=== PATIENT | female | born 1945 | race Caucasian/White ===

== ENCOUNTER 2018-01-09 08:41 | Inpatient (IN) | payer MEDICARE ==
--- NOTE | 2018-01-09 09:12 | EDM.PDOC ---
ED HPI GENERAL MEDICAL PROBLEM - General Chief Complaint: Neuro Symptoms/Deficits Stated Complaint: UNRESPONSIVE Time Seen by Provider: 01/09/18 08:44 Source of Information: Reports: Patient, EMS, Family History Limitations: Reports: Altered Mental Status - History of Present Illness INITIAL COMMENTS - FREE TEXT/NARRATIVE: 72 y.o.w.f with a h/o dementia came to the ed by EMS. The ems was called to the scene pt would be unresponsive. As the EMS personal attempted to start an I V on her, pt said "you do not tough me". As the patient arrived here in the ed she was in tears. Her son arrived, stating, pt had and MRO 6 months ago, was seen by Psych, the eam results were inconclusive, f/u with Neurology was recommended. Pt did not f/u with neuro as of yet. Pt is occ hallucinating. She is not able to give a HPT. denied any physical issues. No N/V/D or any other acute medical issues. BP 146/82 pulse 82 O2 sat 98% Temp 36.7 Onset Date: 10/18/17 Onset Time: 10:00 Duration: Week(s):, Intermittent Location: Reports: Generalized Severity: Moderate Improves with: Reports: Medication Associated Symptoms: Reports: Confusion denies when asked Pain Score (Numeric/FACES): 0 ASLEEP Pain Score (Numeric/FACES): 0 - Related Data Allergies Allergy/AdvReac Type Severity Reaction Status Date / Time No Known Allergies Allergy Verified 01/09/18 08:55 Home Meds: Home Meds Losartan [Cozaar] 100 mg PO DAILY 01/09/18 [History] amLODIPine [Norvasc] 5 mg PO DAILY 01/09/18 [History] ED ROS GENERAL - Review of Systems Review Of Systems: See Below ED EXAM, NEURO - Physical Exam Exam: See Below General Appearance: Alert, WD/WN, Moderate Distress Eye Exam: Bilateral Eye: Normal Inspection Ears: Normal External Exam, Normal Canal Nose: Normal Inspection, Normal Mucosa Throat/Mouth: Normal Inspection, Normal Lips, Normal Gums, Normal Voice, No Airway Compromise Head Exam: Atraumatic, Normocephalic Neck: Normal Inspection, Supple, Non-Tender, Full Range of Motion Respiratory/Chest: No Respiratory Distress, Lungs Clear, Normal Breath Sounds, No Accessory Muscle Use, Chest Non-Tender Cardiovascular: Normal Peripheral Pulses, Regular Rate, Rhythm, No Edema, No Gallop GI/Abdominal: Normal Bowel Sounds, Soft, Non-Tender, No Organomegaly, No Distention, No Abnormal Bruit, No Mass, Pelvis Stable (Female) Exam: Deferred Rectal (Female) Exam: Deferred Neurological: Alert, Normal Mood/Affect, Normal Dorsiflexion, CN II-XII Intact, Normal Plantar Flexion, Normal Gait Back Exam: Normal Inspection, Full Range of Motion Extremities: Normal Inspection, Normal Range of Motion, Non-Tender, No Pedal Edema, Normal Capillary Refill Psychiatric: Depressed Mood, Tearful Skin Exam: Warm, Dry, Intact, Normal Color, No Rash Course - Vital Signs Text/Narrative:: 72 y.o.w.f with a h/o dementia came to the ed by EMS. The ems was called to the scene pt would be unresponsive. As the EMS personal attempted to start an I V on her, pt said "you do not tough me". As the patient arrived here in the ed she was in tears. Her son arrived, stating, pt had and MRO 6 months ago, was seen by Psych, the eam results were inconclusive, f/u with Neurology was recommended. Pt did not f/u with neuro as of yet. Pt is occ hallucinating. She is not able to give a HPT. denied any physical issues. No N/V/D or any other acute medical issues. BP 146/82 pulse 82 O2 sat 98% Temp 36.7 PE: 72 y.o w f with demetia vs Alzheimer's dx w/u in progress Labs: CBC nl Na 138 K 3.1 GFR>60 BUN 24 Cr 0.8 Impression: Dementia vs Alzheimers disease, hypokalemia, anxiety Tx: [place], NS Reexam: Pt was calm here in the ed after Benadryl was given 10.04 am Consultation: Dr. Alexandra, Neurologist, [facility]: Zyprexa and seroquel, admit to stabilize 11.24 am Consultation: Dr. Oretga, Hospitalist: Accepted pt for admission Plan: Admit to gar Last Recorded V/S: Last Vital Signs Temp 37.3 C 01/11/18 16:00 Pulse 81 01/11/18 16:00 Resp 20 01/11/18 16:00 BP 124/73 01/11/18 16:00 Pulse Ox 99 01/11/18 16:00 - Orders/Labs/Meds Orders: Medication Orders Amlodipine Besylate (Norvasc) 5 mg PO DAILY [facility] Last Admin: 01/11/18 08:44 Dose: 5 mg Admin: 01/10/18 09:31 Dose: 5 mg Donepezil HCl (Aricept) 5 mg PO BEDTIME [facility] Last Admin: 01/10/18 20:16 Dose: 5 mg Admin: 01/09/18 21:08 Dose: 5 mg Losartan Potassium (Cozaar) 100 mg PO DAILY [facility] Last Admin: 01/11/18 08:44 Dose: 100 mg Admin: 01/10/18 09:31 Dose: 100 mg Quetiapine Fumarate (Seroquel) 25 mg PO BEDTIME [facility] Last Admin: 01/10/18 20:16 Dose: 25 mg Admin: 01/09/18 21:08 Dose: 25 mg Tuberculin PPD (Aplisol) 5 unit IDERM ONETIME ONE Stop: 01/12/18 12:01 Labs: Laboratory Tests 01/09/18 01/09/18 01/09/18 Range/Units 09:10 09:30 09:30 WBC 5.9 (4.5-12.0) X10-3/uL RBC 4.27 (3.23-5.20) x10(6)uL Hgb 13.8 (11.5-15.5) g/dL Hct 40.3 (30.0-51.3) % MCV 94.3 (80-96) fL MCH 32.2 (27.7-33.6) pg MCHC 34.2 (32.2-35.4) g/dL RDW 12.6 (11.5-15.5) % Plt Count 199 (125-369) X10(3)uL MPV 8.7 (7.4-10.4) fL Neut % (Auto) 70.3 (46-82) % Lymph % (Auto) 17.8 (13-37) % [place] % (Auto) 7.1 (4-12) % Eos % (Auto) 3 (1.0-5.0) % Baso % (Auto) 2 (0-2) % Neut # (Auto) 4.1 (1.6-8.3) # Lymph # (Auto) 1.1 (0.6-5.0) # [place] # (Auto) 0.4 (0.0-1.3) # Eos # (Auto) 0.2 (0.0-0.8) # Baso # (Auto) 0.1 (0.0-0.2) # Sodium 145 (135-145) mmol/L Potassium 3.1 L (3.5-5.3) mmol/L Chloride 106 (100-110) mmol/L Carbon Dioxide 30 (21-32) mmol/L BUN 24 H (7-18) mg/dL Creatinine 0.8 (0.55-1.02) mg/dL Est Cr Clr Drug Dosing 56.36 mL/min Estimated GFR (MDRD) > 60 (>60) BUN/Creatinine Ratio 30.0 H (9-20) Glucose 98 (80-116) mg/dL Calcium 9.0 (8.6-10.2) mg/dL TSH, Ultra Sensitive (0.36-3.74) IU/mL Urine Opiates Screen Negative (NEGATIVE) Ur Oxycodone Screen Negative (NEGATIVE) Ur Propoxyphene Screen Negative (NEGATIVE) Ur Barbituates Screen Negative (NEGATIVE) Ur Tricyclics Screen Negative (NEGATIVE) Ur Phencyclidine Scrn Negative (NEGATIVE) Ur Amphetamine Screen Negative (NEGATIVE) Urine MDMA Screen Negative (NEGATIVE) U Benzodiazepines Scrn Negative (NEGATIVE) U Cocaine Metab Screen Negative (NEGATIVE) U Marijuana (THC) Screen Negative (NEGATIVE) Ethyl Alcohol (<0.03) % 01/09/18 Range/Units 09:30 WBC (4.5-12.0) X10-3/uL RBC (3.23-5.20) x10(6)uL Hgb (11.5-15.5) g/dL Hct (30.0-51.3) % MCV (80-96) fL MCH (27.7-33.6) pg MCHC (32.2-35.4) g/dL RDW (11.5-15.5) % Plt Count (125-369) X10(3)uL MPV (7.4-10.4) fL Neut % (Auto) (46-82) % Lymph % (Auto) (13-37) % [place] % (Auto) (4-12) % Eos % (Auto) (1.0-5.0) % Baso % (Auto) (0-2) % Neut # (Auto) (1.6-8.3) # Lymph # (Auto) (0.6-5.0) # [place] # (Auto) (0.0-1.3) # Eos # (Auto) (0.0-0.8) # Baso # (Auto) (0.0-0.2) # Sodium (135-145) mmol/L Potassium (3.5-5.3) mmol/L Chloride (100-110) mmol/L Carbon Dioxide (21-32) mmol/L BUN (7-18) mg/dL Creatinine (0.55-1.02) mg/dL Est Cr Clr Drug Dosing mL/min Estimated GFR (MDRD) (>60) BUN/Creatinine Ratio (9-20) Glucose (80-116) mg/dL Calcium (8.6-10.2) mg/dL TSH, Ultra Sensitive 1.86 (0.36-3.74) IU/mL Urine Opiates Screen (NEGATIVE) Ur Oxycodone Screen (NEGATIVE) Ur Propoxyphene Screen (NEGATIVE) Ur Barbituates Screen (NEGATIVE) Ur Tricyclics Screen (NEGATIVE) Ur Phencyclidine Scrn (NEGATIVE) Ur Amphetamine Screen (NEGATIVE) Urine MDMA Screen (NEGATIVE) U Benzodiazepines Scrn (NEGATIVE) U Cocaine Metab Screen (NEGATIVE) U Marijuana (THC) Screen (NEGATIVE) Ethyl Alcohol < 0.03 (<0.03) % Meds: Medications Generic Name Dose Route Start Last Admin Trade Name Freq PRN Reason Stop Dose Admin Amlodipine Besylate 5 mg 01/10/18 09:00 01/11/18 08:44 Norvasc PO 5 mg DAILY [facility] Administration Donepezil HCl 5 mg 01/09/18 21:00 01/10/18 20:16 Aricept PO 5 mg BEDTIME [facility] Administration Losartan Potassium 100 mg 01/10/18 09:00 01/11/18 08:44 Cozaar PO 100 mg DAILY [facility] Administration Quetiapine Fumarate 25 mg 01/09/18 21:00 01/10/18 20:16 Seroquel PO 25 mg BEDTIME [facility] Administration Tuberculin PPD 5 unit 06/01/18 12:00 Aplisol IDERM 06/01/18 12:01 ONETIME ONE Discontinued Medications Generic Name Dose Route Start Last Admin Trade Name Alekseyq PRN Reason Stop Dose Admin Diphenhydramine HCl 50 mg 01/09/18 09:36 01/09/18 09:56 Benadryl IM 01/09/18 09:37 50 mg ONETIME ONE Administration Olanzapine 5 mg 01/09/18 10:20 01/09/18 11:21 Zyprexa IM 01/09/18 10:21 5 mg ONETIME ONE Administration Potassium Chloride 40 meq 01/09/18 11:27 01/09/18 11:40 Klor-Con M20 PO 01/09/18 11:28 40 meq ONETIME ONE Administration Departure - Departure Time of Disposition: 16:00 Disposition: Admitted As Inpatient 65 Condition: Fair Clinical Impression: Dementia Qualifiers: Dementia type: Alzheimer's disease Alzheimer's disease onset: late-onset Dementia behavioral disturbance: with behavioral disturbance Qualified Code(s): G30.1 - Alzheimer's disease with late onset - Discharge Information
[2018-01-09] MEDS ORDERED: diphenhydrAMINE 50 MG/ML SDV IM ONE (09:36)
[2018-01-09] MEDS ORDERED: OLANZapine 10 MG Vial IM ONE (10:20)
[2018-01-09] MEDS ORDERED: Potassium Chloride 20 MEQ Tab.ER PO ONE (11:27)
--- NOTE | 2018-01-09 17:36 | PCM.HP ---
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 The son and the ER staff report that she has been forgetful over the last 6 months of sore and has had both visual and auditory hallucinations, to the point that she was uncontrollable today. She is known to have dementia after comprehensive neuropsychiatric done testing on 11/29/2017 by David Valadez PHD. Lori herself states that she's had forgetfulness, difficulty walking, and being lost several times while driving. She also finds is helpful getting things that she knows she had done several times like doing laundry. There is no report of fever chest pain or chills. Her symptoms have been gradual in onset and worsened last few weeks. The son is concerned about her safety, but she is no longer able to live independently as she does. Her driving privileges were taken a few weeks ago. Other history the past includes hypertension and knee also arthritis which have been relatively stable. May retired from [employer] teaching about a year ago denies when asked Pain Score (Numeric/FACES): 0 - Related Data Allergies/Adverse Reactions: Allergies Allergy/AdvReac Type Severity Reaction Status Date / Time No Known Allergies Allergy Verified 01/09/18 08:55 Home Medications: Home Meds Losartan [Cozaar] 100 mg PO DAILY 01/09/18 [History] amLODIPine [Norvasc] 5 mg PO DAILY 01/09/18 [History] Past Medical History HEENT History: Reports: Cataract Cardiovascular History: Reports: Hypertension Musculoskeletal History: Reports: Fracture Other Musculoskeletal History: fx R ankle Neurological History: Reports: Other (See Below) Other Neuro History: confusion, hallucinations Psychiatric History: Reports: Other (See Below) Other Psychiatric History: confusion, hallucinations - Infectious Disease History Infectious Disease History: Reports: Chicken Pox, Measles, Mumps - Past Surgical History HEENT Surgical History: Reports: Adenoidectomy, Tonsillectomy GI Surgical History: Reports: Appendectomy Neurological Surgical History: Reports: None Musculoskeletal Surgical History: Reports: Other (See Below) Other Musculoskeletal Surgeries/Procedures:: R ankle fusion Social & Family History - Family History Family Medical History: Noncontributory - Tobacco Use Smoking Status *Q: Former Smoker Years of Tobacco use: 1 Used Tobacco, but Quit: No Month/Year Tobacco Last Used: aug Second Hand Smoke Exposure: No - Caffeine Use Caffeine Use: Reports: Soda Other Caffeine Use: 1 can - Recreational Drug Use Recreational Drug Use: No H&P Review of Systems - Review of Systems: Review Of Systems: ROS reveals no pertinent complaints other than HPI. Exam - Exam Exam: See Below - Vital Signs Vital Signs: Last Vital Signs Temp 97.4 F 01/09/18 12:25 Pulse 84 01/09/18 12:25 Resp 18 01/09/18 12:25 BP 146/82 H 01/09/18 12:25 Pulse Ox 100 01/09/18 12:25 Weight: 63.503 kg - Exam General: Alert, Oriented, 4 HEENT: PERRLA, Hearing Intact, Mucosa Moist & [place], Nares Patent, Normal Nasal Septum, Posterior Pharynx Clear, Conjunctiva Clear, EOMI, EACs Clear, TMs Clear Neck: Supple, Trachea Midline, 2 Lungs: Clear to Auscultation, Normal Respiratory Effort Cardiovascular: Regular Rate, Regular Rhythm GI/Abdominal Exam: Normal Bowel Sounds, Soft, Non-Tender, No Organomegaly, No Distention, No Abnormal Bruit, No Mass, Pelvis Stable (Female) Exam: Deferred Rectal (Female) Exam: Deferred Back Exam: Normal Inspection, Full Range of Motion, NT Extremities: Normal Inspection, Normal Range of Motion, Non-Tender, No Pedal Edema, Normal Capillary Refill Skin: Warm, Dry, Intact Neurological: Cranial Nerves Intact, Reflexes Equal Bilateral Neuro Extensive - Mental Status: Alert, Normal Mood/Affect, Memory Loss-Remote Events. No: Oriented x3, Memory Intact Neuro Extensive - Motor, Sensory, Reflexes: CN II-XII Intact, Normal Gait, Normal Reflexes Psychiatric: Alert, Normal Affect, Hallucinations - Patient Data Lab Results Last 24 hrs: Laboratory Results - last 24 hr 01/09/18 01/09/18 01/09/18 Range/Units 09:10 09:30 09:30 WBC 5.9 (4.5-12.0) X10-3/uL RBC 4.27 (3.23-5.20) x10(6)uL Hgb 13.8 (11.5-15.5) g/dL Hct 40.3 (30.0-51.3) % MCV 94.3 (80-96) fL MCH 32.2 (27.7-33.6) pg MCHC 34.2 (32.2-35.4) g/dL RDW 12.6 (11.5-15.5) % Plt Count 199 (125-369) X10(3)uL MPV 8.7 (7.4-10.4) fL Neut % (Auto) 70.3 (46-82) % Lymph % (Auto) 17.8 (13-37) % [place] % (Auto) 7.1 (4-12) % Eos % (Auto) 3 (1.0-5.0) % Baso % (Auto) 2 (0-2) % Neut # (Auto) 4.1 (1.6-8.3) # Lymph # (Auto) 1.1 (0.6-5.0) # [place] # (Auto) 0.4 (0.0-1.3) # Eos # (Auto) 0.2 (0.0-0.8) # Baso # (Auto) 0.1 (0.0-0.2) # Sodium 145 (135-145) mmol/L Potassium 3.1 L (3.5-5.3) mmol/L Chloride 106 (100-110) mmol/L Carbon Dioxide 30 (21-32) mmol/L BUN 24 H (7-18) mg/dL Creatinine 0.8 (0.55-1.02) mg/dL Est Cr Clr Drug Dosing 56.36 mL/min Estimated GFR (MDRD) > 60 (>60) BUN/Creatinine Ratio 30.0 H (9-20) Glucose 98 (80-116) mg/dL Calcium 9.0 (8.6-10.2) mg/dL TSH, Ultra Sensitive (0.36-3.74) IU/mL Urine Opiates Screen Negative (NEGATIVE) Ur Oxycodone Screen Negative (NEGATIVE) Ur Propoxyphene Screen Negative (NEGATIVE) Ur Barbituates Screen Negative (NEGATIVE) Ur Tricyclics Screen Negative (NEGATIVE) Ur Phencyclidine Scrn Negative (NEGATIVE) Ur Amphetamine Screen Negative (NEGATIVE) Urine MDMA Screen Negative (NEGATIVE) U Benzodiazepines Scrn Negative (NEGATIVE) U Cocaine Metab Screen Negative (NEGATIVE) U Marijuana (THC) Screen Negative (NEGATIVE) Ethyl Alcohol (<0.03) % 01/09/18 Range/Units 09:30 WBC (4.5-12.0) X10-3/uL RBC (3.23-5.20) x10(6)uL Hgb (11.5-15.5) g/dL Hct (30.0-51.3) % MCV (80-96) fL MCH (27.7-33.6) pg MCHC (32.2-35.4) g/dL RDW (11.5-15.5) % Plt Count (125-369) X10(3)uL MPV (7.4-10.4) fL Neut % (Auto) (46-82) % Lymph % (Auto) (13-37) % [place] % (Auto) (4-12) % Eos % (Auto) (1.0-5.0) % Baso % (Auto) (0-2) % Neut # (Auto) (1.6-8.3) # Lymph # (Auto) (0.6-5.0) # [place] # (Auto) (0.0-1.3) # Eos # (Auto) (0.0-0.8) # Baso # (Auto) (0.0-0.2) # Sodium (135-145) mmol/L Potassium (3.5-5.3) mmol/L Chloride (100-110) mmol/L Carbon Dioxide (21-32) mmol/L BUN (7-18) mg/dL Creatinine (0.55-1.02) mg/dL Est Cr Clr Drug Dosing mL/min Estimated GFR (MDRD) (>60) BUN/Creatinine Ratio (9-20) Glucose (80-116) mg/dL Calcium (8.6-10.2) mg/dL TSH, Ultra Sensitive 1.86 (0.36-3.74) IU/mL Urine Opiates Screen (NEGATIVE) Ur Oxycodone Screen (NEGATIVE) Ur Propoxyphene Screen (NEGATIVE) Ur Barbituates Screen (NEGATIVE) Ur Tricyclics Screen (NEGATIVE) Ur Phencyclidine Scrn (NEGATIVE) Ur Amphetamine Screen (NEGATIVE) Urine MDMA Screen (NEGATIVE) U Benzodiazepines Scrn (NEGATIVE) U Cocaine Metab Screen (NEGATIVE) U Marijuana (THC) Screen (NEGATIVE) Ethyl Alcohol < 0.03 (<0.03) % Result Diagrams: 01/09/18 09:30 01/09/18 09:30 - Problem List (1) Dementia SNOMED Code(s): 38175030 ICD Code: F03.90 - UNSPECIFIED DEMENTIA WITHOUT BEHAVIORAL DISTURBANCE Status: Acute Current Visit: Yes (2) HTN (hypertension) SNOMED Code(s): 04729010 ICD Code: I10 - ESSENTIAL (PRIMARY) HYPERTENSION Status: Acute Current Visit: Yes Qualifiers: Hypertension type: essential hypertension Qualified Code(s): I10 - Essential (primary) hypertension Problem List Initiated/Reviewed/Updated: Yes Orders Last 24hrs: Active Orders 24 hr Category Date Time Status Patient Status [ADT] Routine ADT 01/09/18 11:48 Active Oxygen Therapy [RC] PRN Care 01/09/18 11:48 Active Up With Assistance [RC] ASDIRECTED Care 01/09/18 11:48 Active VTE/DVT Education [RC] Per Unit Routine Care 01/09/18 11:48 Active Vital Signs [RC] 08,12,16,20,00,04 Care 01/09/18 11:48 Active Regular Diet [DIET] Diet 01/09/18 Breakfast Active DRUG SCREEN, URINE ALERE [URCHEM] Stat Lab 01/09/18 09:10 Ordered Resuscitation Status Routine Resus Stat 01/09/18 11:48 Ordered Assessment/Plan Comment:: Patient will be admitted for safety reasons, and 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 Zyprexa or Seroquel will be started along with the antiseptic. Continued losartan for blood pressure. social worker assistant will be consulted to determine disposition ,as she's not able to retun home independently.
[2018-01-09] MEDS: Donepezil 5 MG Tab PO SCH (21:08)
[2018-01-09] MEDS: QUEtiapine 25 MG Tab PO SCH (21:08)
--- NOTE | 2018-01-10 08:06 | PCM.PN ---
- General Info Date of Service: 01/10/18 Admission Dx/Problem (Free Text): Admission Diagnosis/Problem Admission Diagnosis/Problem Dementia Subjective Update: Lori slept well however still confused and disoriented. She thinks the team's when in fact,Bulmaro is her son - Review of Systems Gastrointestinal: Reports: No Symptoms Genitourinary: Reports: No Symptoms Musculoskeletal: Reports: No Symptoms - Patient Data Vitals - Most Recent: Last Vital Signs Temp 98.1 F 01/10/18 04:15 Pulse 76 01/10/18 04:15 Resp 18 01/10/18 04:15 BP 120/60 01/10/18 04:15 Pulse Ox 92 L 01/10/18 04:15 Weight - Most Recent: 63.503 kg Lab Results Last 24 Hours: Laboratory Results - last 24 hr 01/09/18 01/09/18 01/09/18 Range/Units 09:10 09:30 09:30 WBC 5.9 (4.5-12.0) X10-3/uL RBC 4.27 (3.23-5.20) x10(6)uL Hgb 13.8 (11.5-15.5) g/dL Hct 40.3 (30.0-51.3) % MCV 94.3 (80-96) fL MCH 32.2 (27.7-33.6) pg MCHC 34.2 (32.2-35.4) g/dL RDW 12.6 (11.5-15.5) % Plt Count 199 (125-369) X10(3)uL MPV 8.7 (7.4-10.4) fL Neut % (Auto) 70.3 (46-82) % Lymph % (Auto) 17.8 (13-37) % [place] % (Auto) 7.1 (4-12) % Eos % (Auto) 3 (1.0-5.0) % Baso % (Auto) 2 (0-2) % Neut # (Auto) 4.1 (1.6-8.3) # Lymph # (Auto) 1.1 (0.6-5.0) # [place] # (Auto) 0.4 (0.0-1.3) # Eos # (Auto) 0.2 (0.0-0.8) # Baso # (Auto) 0.1 (0.0-0.2) # Sodium 145 (135-145) mmol/L Potassium 3.1 L (3.5-5.3) mmol/L Chloride 106 (100-110) mmol/L Carbon Dioxide 30 (21-32) mmol/L BUN 24 H (7-18) mg/dL Creatinine 0.8 (0.55-1.02) mg/dL Est Cr Clr Drug Dosing 56.36 mL/min Estimated GFR (MDRD) > 60 (>60) BUN/Creatinine Ratio 30.0 H (9-20) Glucose 98 (80-116) mg/dL Calcium 9.0 (8.6-10.2) mg/dL TSH, Ultra Sensitive (0.36-3.74) IU/mL Urine Opiates Screen Negative (NEGATIVE) Ur Oxycodone Screen Negative (NEGATIVE) Ur Propoxyphene Screen Negative (NEGATIVE) Ur Barbituates Screen Negative (NEGATIVE) Ur Tricyclics Screen Negative (NEGATIVE) Ur Phencyclidine Scrn Negative (NEGATIVE) Ur Amphetamine Screen Negative (NEGATIVE) Urine MDMA Screen Negative (NEGATIVE) U Benzodiazepines Scrn Negative (NEGATIVE) U Cocaine Metab Screen Negative (NEGATIVE) U Marijuana (THC) Screen Negative (NEGATIVE) Ethyl Alcohol (<0.03) % 01/09/18 Range/Units 09:30 WBC (4.5-12.0) X10-3/uL RBC (3.23-5.20) x10(6)uL Hgb (11.5-15.5) g/dL Hct (30.0-51.3) % MCV (80-96) fL MCH (27.7-33.6) pg MCHC (32.2-35.4) g/dL RDW (11.5-15.5) % Plt Count (125-369) X10(3)uL MPV (7.4-10.4) fL Neut % (Auto) (46-82) % Lymph % (Auto) (13-37) % [place] % (Auto) (4-12) % Eos % (Auto) (1.0-5.0) % Baso % (Auto) (0-2) % Neut # (Auto) (1.6-8.3) # Lymph # (Auto) (0.6-5.0) # [place] # (Auto) (0.0-1.3) # Eos # (Auto) (0.0-0.8) # Baso # (Auto) (0.0-0.2) # Sodium (135-145) mmol/L Potassium (3.5-5.3) mmol/L Chloride (100-110) mmol/L Carbon Dioxide (21-32) mmol/L BUN (7-18) mg/dL Creatinine (0.55-1.02) mg/dL Est Cr Clr Drug Dosing mL/min Estimated GFR (MDRD) (>60) BUN/Creatinine Ratio (9-20) Glucose (80-116) mg/dL Calcium (8.6-10.2) mg/dL TSH, Ultra Sensitive 1.86 (0.36-3.74) IU/mL Urine Opiates Screen (NEGATIVE) Ur Oxycodone Screen (NEGATIVE) Ur Propoxyphene Screen (NEGATIVE) Ur Barbituates Screen (NEGATIVE) Ur Tricyclics Screen (NEGATIVE) Ur Phencyclidine Scrn (NEGATIVE) Ur Amphetamine Screen (NEGATIVE) Urine MDMA Screen (NEGATIVE) U Benzodiazepines Scrn (NEGATIVE) U Cocaine Metab Screen (NEGATIVE) U Marijuana (THC) Screen (NEGATIVE) Ethyl Alcohol < 0.03 (<0.03) % Med Orders - Current: Current Medications Amlodipine Besylate (Norvasc) 5 mg PO DAILY [facility] Donepezil HCl (Aricept) 5 mg PO BEDTIME [facility] Last Admin: 01/09/18 21:08 Dose: 5 mg Losartan Potassium (Cozaar) 100 mg PO DAILY [facility] Quetiapine Fumarate (Seroquel) 25 mg PO BEDTIME [facility] Last Admin: 01/09/18 21:08 Dose: 25 mg Discontinued Medications Diphenhydramine HCl (Benadryl) 50 mg IM ONETIME ONE Stop: 01/09/18 09:37 Last Admin: 01/09/18 09:56 Dose: 50 mg Olanzapine (Zyprexa) 5 mg IM ONETIME ONE Stop: 01/09/18 10:21 Last Admin: 01/09/18 11:21 Dose: 5 mg Potassium Chloride (Klor-Con M20) 40 meq PO ONETIME ONE Stop: 01/09/18 11:28 Last Admin: 01/09/18 11:40 Dose: 40 meq - Exam General: Alert, Cooperative, No Acute Distress Lungs: Clear to Auscultation, Normal Respiratory Effort Psy/Mental Status: Alert, Other (Confused) - Problem List & Annotations (1) Dementia SNOMED Code(s): 56395285 Code(s): F03.90 - UNSPECIFIED DEMENTIA WITHOUT BEHAVIORAL DISTURBANCE Status: Acute Current Visit: Yes Qualifiers: Dementia type: Alzheimer's disease Alzheimer's disease onset: late-onset Dementia behavioral disturbance: with behavioral disturbance Qualified Code(s) : G30.1 - Alzheimer's disease with late onset; F02.81 - Dementia in other diseases classified elsewhere with behavioral disturbance (2) HTN (hypertension) SNOMED Code(s): 83308440 Code(s): I10 - ESSENTIAL (PRIMARY) HYPERTENSION Status: Acute Current Visit: Yes Qualifiers: Hypertension type: essential hypertension Qualified Code(s): I10 - Essential (primary) hypertension - Problem List Review Problem List Initiated/Reviewed/Updated: Yes - My Orders Last 24 Hours: My Active Orders 01/09/18 21:00 Donepezil [Aricept] 5 mg PO BEDTIME QUEtiapine [SEROquel] 25 mg PO BEDTIME 01/10/18 09:00 Losartan [Cozaar] 100 mg PO DAILY amLODIPine [Norvasc] 5 mg PO DAILY - Plan Plan:: My understanding that made was supposed to [address] [place] [address] yesterday. I work with the social worker aide to determine disposition today. Meanwhile continue Seroquel at bedtime, antihypertensives and Aricept.
[2018-01-10] MEDS: amLODIPine 5 MG Tab PO SCH (09:31)
[2018-01-10] MEDS: Losartan 100 MG Tab PO SCH (09:31)
[2018-01-10] MEDS: QUEtiapine 25 MG Tab PO SCH (20:16)
[2018-01-10] MEDS: Donepezil 5 MG Tab PO SCH (20:16)
--- NOTE | 2018-01-11 08:43 | PCM.PN ---
- General Info Date of Service: 01/11/18 Subjective Update: Slept normal, as been having hallucinations visual. But she stated that these are chronic for her. She describes small furry people, that do not talk Functional Status: Reports: Pain Controlled, Tolerating Diet - Review of Systems HEENT: Reports: No Symptoms Pulmonary: Reports: No Symptoms Cardiovascular: Reports: No Symptoms Gastrointestinal: Reports: No Symptoms Genitourinary: Reports: No Symptoms - Patient Data Vitals - Most Recent: Last Vital Signs Temp 98.2 F 01/11/18 04:30 Pulse 86 01/11/18 04:30 Resp 16 01/11/18 04:30 BP 141/74 H 01/11/18 04:30 Pulse Ox 97 01/11/18 04:30 Weight - Most Recent: 63.503 kg Med Orders - Current: Current Medications Amlodipine Besylate (Norvasc) 5 mg PO DAILY [facility] Last Admin: 01/10/18 09:31 Dose: 5 mg Donepezil HCl (Aricept) 5 mg PO BEDTIME [facility] Last Admin: 01/10/18 20:16 Dose: 5 mg Losartan Potassium (Cozaar) 100 mg PO DAILY [facility] Last Admin: 01/10/18 09:31 Dose: 100 mg Quetiapine Fumarate (Seroquel) 25 mg PO BEDTIME [facility] Last Admin: 01/10/18 20:16 Dose: 25 mg Discontinued Medications Diphenhydramine HCl (Benadryl) 50 mg IM ONETIME ONE Stop: 01/09/18 09:37 Last Admin: 01/09/18 09:56 Dose: 50 mg Olanzapine (Zyprexa) 5 mg IM ONETIME ONE Stop: 01/09/18 10:21 Last Admin: 01/09/18 11:21 Dose: 5 mg Potassium Chloride (Klor-Con M20) 40 meq PO ONETIME ONE Stop: 01/09/18 11:28 Last Admin: 01/09/18 11:40 Dose: 40 meq - Exam General: Alert, Cooperative, No Acute Distress Psy/Mental Status: Alert, Normal Affect, Hallucinations - Problem List & Annotations (1) Dementia SNOMED Code(s): 00436133 Code(s): F03.90 - UNSPECIFIED DEMENTIA WITHOUT BEHAVIORAL DISTURBANCE Status: Acute Current Visit: Yes Qualifiers: Dementia type: Alzheimer's disease Alzheimer's disease onset: late-onset Dementia behavioral disturbance: with behavioral disturbance Qualified Code(s) : G30.1 - Alzheimer's disease with late onset; F02.81 - Dementia in other diseases classified elsewhere with behavioral disturbance (2) HTN (hypertension) SNOMED Code(s): 52342267 Code(s): I10 - ESSENTIAL (PRIMARY) HYPERTENSION Status: Acute Current Visit: Yes Qualifiers: Hypertension type: essential hypertension Qualified Code(s): I10 - Essential (primary) hypertension - Problem List Review Problem List Initiated/Reviewed/Updated: Yes - My Orders Last 24 Hours: My Active Orders 01/10/18 09:00 Losartan [Cozaar] 100 mg PO DAILY amLODIPine [Norvasc] 5 mg PO DAILY - Plan Plan:: My understanding that she may go to [facility]. I will continue to work with the social worker delinquency prevention to determine disposition today. Meanwhile continue Seroquel at bedtime, antihypertensives and Aricept.
[2018-01-11] MEDS: Losartan 100 MG Tab PO SCH (08:44)
[2018-01-11] MEDS: amLODIPine 5 MG Tab PO SCH (08:44)
[2018-01-11] MEDS: Donepezil 5 MG Tab PO SCH (20:20)
[2018-01-11] MEDS: QUEtiapine 25 MG Tab PO SCH (20:20)
[2018-01-12] MEDS: amLODIPine 5 MG Tab PO SCH (09:33)
[2018-01-12] MEDS: Losartan 100 MG Tab PO SCH (09:34)
[2018-01-12] MEDS ORDERED: Tuberculin, PPD 5 Units/0.1 ML 1 ML MDV IDERM ONE (12:00)
--- NOTE | 2018-01-12 14:27 | PCM.DCSUM1 ---
Discharge Summary - Hospital Course Free Text/Narrative:: Date of admission: 01/09/18 Date of discharge: 01/12/2018 Admission diagnosis: Alzheimer's dementia with hallucinations and wandering. Patient danger to self and no longer able to live independently with family. Discharge diagnosis: Same Consults: None Procedures: None History of present illness: Patient is a 72-year-old female with known dementia , Alzheimer's type with formal neuropsych testing in 11/29 who has been having hallucinations and increasing forgetfulness over the last 6 months. She's been living with her son but unfortunately the day of admission she had wandered off and walked almost 4 miles before she was found. She was admitted for further evaluation and to ensure her safety. Hospital course: Patient was started on Seroquel and Aricept and tolerated these medications well. She is doing very well at this time and will be discharged home with her son over the weekend and a placement was found for her at [facility] for Monday. Discharge instructions: Patient will discharge to home. Follow-up with primary care provider next week. Will be seen on placement at [facility]. Continue current outpatient medications. 2 new medications started in the hospital, Seroquel and Aricept. - Discharge Data Discharge Date: 01/12/18 Discharge Disposition: DC/Tfer to Other 70 Condition: Good - Discharge Diagnosis/Problem(s) (1) Dementia SNOMED Code(s): 52732320 ICD Code: F03.90 - UNSPECIFIED DEMENTIA WITHOUT BEHAVIORAL DISTURBANCE Status: Acute Current Visit: Yes Problem Details: Patient started on Seroquel and Aricept here. We will discharge home with her son and placement planned for Monday. Qualifiers: Dementia type: Alzheimer's disease Alzheimer's disease onset: late-onset Dementia behavioral disturbance: with behavioral disturbance Qualified Code(s) : G30.1 - Alzheimer's disease with late onset; F02.81 - Dementia in other diseases classified elsewhere with behavioral disturbance (2) HTN (hypertension) SNOMED Code(s): 47308925 ICD Code: I10 - ESSENTIAL (PRIMARY) HYPERTENSION Status: Acute Current Visit: Yes Problem Details: Continue current outpatient medication. Qualifiers: Hypertension type: essential hypertension Qualified Code(s): I10 - Essential (primary) hypertension - Patient Instructions Diet: Heart Healthy Diet - Discharge Plan Prescriptions/Med Rec: Donepezil [Aricept] 5 mg PO BEDTIME #30 tablet QUEtiapine [SEROquel] 25 mg PO BEDTIME #30 tablet Home Medications: Home Meds Losartan [Cozaar] 100 mg PO DAILY 01/09/18 [History] amLODIPine [Norvasc] 5 mg PO DAILY 01/09/18 [History] Donepezil [Aricept] 5 mg PO BEDTIME #30 tablet 01/12/18 [Rx] QUEtiapine [SEROquel] 25 mg PO BEDTIME #30 tablet 01/12/18 [Rx] Patient Handouts: Fall Prevention in the Home, [id number], Hypokalemia, Venous Thromboembolism Prevention Forms: ED Department Discharge Referrals: Narayan Muniz MD [Primary Care Provider] - - Discharge Summary/Plan Comment DC Time >30 min.: No - Patient Data Vitals - Most Recent: Last Vital Signs Temp 36.4 C 01/12/18 08:00 Pulse 84 01/12/18 08:00 Resp 16 01/12/18 08:00 BP 123/82 01/12/18 09:34 Pulse Ox 100 01/12/18 08:00 Weight - Most Recent: 63.503 kg Med Orders - Current: Current Medications Amlodipine Besylate (Norvasc) 5 mg PO DAILY [facility] Last Admin: 01/12/18 09:33 Dose: 5 mg Donepezil HCl (Aricept) 5 mg PO BEDTIME [facility] Last Admin: 01/11/18 20:20 Dose: 5 mg Losartan Potassium (Cozaar) 100 mg PO DAILY [facility] Last Admin: 01/12/18 09:34 Dose: 100 mg Quetiapine Fumarate (Seroquel) 25 mg PO BEDTIME [facility] Last Admin: 01/11/18 20:20 Dose: 25 mg Discontinued Medications Diphenhydramine HCl (Benadryl) 50 mg IM ONETIME ONE Stop: 01/09/18 09:37 Last Admin: 01/09/18 09:56 Dose: 50 mg Olanzapine (Zyprexa) 5 mg IM ONETIME ONE Stop: 01/09/18 10:21 Last Admin: 01/09/18 11:21 Dose: 5 mg Potassium Chloride (Klor-Con M20) 40 meq PO ONETIME ONE Stop: 01/09/18 11:28 Last Admin: 01/09/18 11:40 Dose: 40 meq Tuberculin PPD (Aplisol) 5 unit IDERM ONETIME ONE Stop: 01/12/18 12:01 Last Admin: 01/12/18 11:30 Dose: 5 unit
== END 2018-01-12 14:47 | disposition home or self-care (01) | DRG 57 ==
LOC: FB.ED 08:41 → FB.MS 11:32
PROVIDERS: ADMIT Family Medicine; ATTEND Family Medicine
DX: G30.1 Alzheimer's disease with late onset (principal); F02.81 Dementia in other diseases classified elsewhere, unspecified severity, with behavioral disturbance; R44.0 Auditory hallucinations; Z91.83 Wandering in diseases classified elsewhere; I10 Essential (primary) hypertension; Z87.891 Personal history of nicotine dependence; R44.1 Visual hallucinations; R41.82 Altered mental status, unspecified; M17.0 Bilateral primary osteoarthritis of knee; Z11.1 Encounter for screening for respiratory tuberculosis
CPT/HCPCS: 36415; 80048; 80305; 84443; 85025; 96372; 99285; G0480; J1200; 86580; A9270-GY; S0166